=== PATIENT | female | born 1990 | race Caucasian/White ===

== ENCOUNTER 2018-01-22 19:47 | Emergency (ER) | payer OTHER ==
[~2018-01-22] VITALS: Ht 160 cm; Wt 103.4 kg
[2018-01-22] MEDS ORDERED: XANAX2 MG PO (19:56)
== END 2018-01-22 23:11 | disposition home or self-care (01) ==
LOC: ER 19:47
DX: S13.4XXA Sprain of ligaments of cervical spine, initial encounter (principal); V49.9XXA Car occupant (driver) (passenger) injured in unspecified traffic accident, initial encounter; Y93.89 Activity, other specified; Y92.488 Other paved roadways as the place of occurrence of the external cause; Y99.8 Other external cause status

== ENCOUNTER 2018-11-02 01:25 | Emergency (ER) | payer OTHER ==
[~2018-11-02] VITALS: Ht 167.6 cm; Wt 107.0 kg
[~2018-11-02 01:25] MED LIST: XANAX2 MG PO
== END 2018-11-02 09:19 | disposition home or self-care (01) ==
LOC: ER 01:25
DX: R00.2 Palpitations (principal)